=== PATIENT | female | born 1960 | race Caucasian/White ===

== ENCOUNTER 2017-08-11 10:23 | Outpatient (CLI) | payer OTHER ==
[2017-08-11 17:03] LABS: Hemoglobin A1c 6.7 % (4.0-6.0)
[2017-08-11 17:11] LABS: Creatinine, Urine 39.91 mg/dL (47-110); Microalbumin Urine Less than 5.0 mg/dL (0.5-50.0)
[2017-08-11 17:25] LABS: Free T4 (Free Thyroxine) 1.14 ng/dL (0.70-1.48); Vitamin D, 25 Hydroxy 80.7 ng/ml (> 30.0)
[2017-08-11 21:45] LABS: ALT (SGPT) 11 U/L (8-55); AST (SGOT) 15 U/L (5-34); Albumin 4.2 g/dL (3.5-5.0); Alkaline Phosphatase 63 U/L (40-150); Anion Gap 11 mmol/L (10-20); BUN (Urea Nitrogen) 13 mg/dL (9.8-20.1); Bilirubin, Total 0.5 mg/dL (0.2-1.2); Calc. Creatinine Clearance 0 mL/min (70-130); Calcium 9.3 mg/dL (7.8-10.44); Carbon Dioxide 26 mmol/L (22-29); Cardiac Risk 2.7 (Less than 4.5); Chloride 106 mmol/L (98-107); Cholesterol 217 mg/dl (< 200 Desired); Estimated GFR-MDRD 71; Globulin 2.7 g/dL (2.4-3.5); Glucose 96 mg/dL (70-105); HDL Cholesterol 79 mg/dL (>60 Neg Risk); LDL Cholesterol, Calculated 125 mg/dL; Potassium 4.1 mmol/L (3.5-5.1); Protein, Total 6.9 g/dL (6.0-8.3); Sodium 139 mmol/L (136-145); Triglycerides 65 mg/dL (Less than 150)
[2017-08-12 09:31] LABS: Thyroid Stimulating Hormone 0.6474 uIU/mL (0.35-4.94)
== END 2017-08-11 10:24 | disposition home or self-care (01) ==
LOC: MADLAB 10:23
PROVIDERS: ATTEND Internal Medicine Endocrinology, Diabetes & Metabolism
DX: E10.8 Type 1 diabetes mellitus with unspecified complications (principal); E03.9 Hypothyroidism, unspecified; E55.9 Vitamin D deficiency, unspecified; E78.00 Pure hypercholesterolemia, unspecified
CPT/HCPCS: 36415; 80053; 80061; 82043; 82306; 83036; 84439; 84443